=== PATIENT | male | born 1960 | race Caucasian/White ===

== ENCOUNTER 2020-08-04 08:24 | Observation (INO) | payer OTHER, SELFPAY ==
[2020-08-04] MEDS ORDERED: NA CHLORIDE 0.9% 1,000 ML ONE (08:50)
[2020-08-04 09:09] LABS: Absolute Lymphocytes (CBC) 0.8 K/uL (0.7-4.9); Basophils % 0.7 % (0-1.3); Hematocrit 38.7 % (39.6-49.0); MPV 8.7 fL (7.6-11.3)
[2020-08-04 09:13] LABS: Protime INR 0.97
[2020-08-04 09:23] LABS: ALT/SGPT 20 U/L (12-78); AST/SGOT 18 U/L (15-37); Albumin 3.3 g/dL (3.4-5.0); Alkaline Phosphatase 60 U/L (45-117); BUN Blood Urea Nitrogen 16 mg/dL (7-18); Bicarbonate 25 mmol/L (21-32); Bilirubin Direct 0.1 mg/dL (0-0.2); Bilirubin Total 0.4 mg/dL (0.2-1.0); Creatine Phosphokinase 187 U/L (39-308); Glucose Level 163 mg/dL (74-106); Lipase 95 U/L (73-393); Protein, Total 6.4 g/dL (6.4-8.2); Sodium Level 141 mmol/L (136-145); Troponin (Emerg Dept Use Only) < 0.02 ng/mL (0.0-0.045)
[2020-08-04 10:19] LABS: Urine Blood NEGATIVE (NEG); Urine Glucose NEGATIVE (NEG); Urine Protein NEGATIVE (NEG); Urine Specific Gravity 1.025 (1.005-1.030); Urine pH 8.5 (5.0-7.0)
--- NOTE | 2020-08-04 10:26 | RAD REPORT ---
EXAM DESCRIPTION: CT - Head Brain Wo Cont - 08/04/2020 9:47 am CLINICAL HISTORY: Generalized weakness Headache, drowsiness, vertigo COMPARISON: No comparisons TECHNIQUE: All CT scans are performed using dose optimization technique as appropriate and may inclu de automated exposure control or mA/KV adjustment according to patient size. FINDINGS: No intracranial hemorrhage, hydrocephalus or extra-axial fluid collection.No areas of brai n edema or evidence of midline shift. The paranasal sinuses and mastoids are clear. The calvarium is intact. IMPRESSION: No acute intracranial abnormality.
--- NOTE | 2020-08-04 10:26 | RAD REPORT ---
EXAM DESCRIPTION: CT - Head angio - 08/04/2020 9:47 am CLINICAL HISTORY: WEAKNESS Headache, drowsiness, weakness COMPARISON: Head Brain Wo Cont dated 08/04/2020 TECHNIQUE: CT angiography of the head was performed with MIPs. All CT scans are performed using dose optimization technique as appropriate and may include automated exposure control or mA/KV adjustment according to patient size. FINDINGS: No evidence of aneurysm is detected. No flow-limiting stenosis or vascular malformation id entified. Antegrade flow is seen in the vertebral arteries. The vertebral arteries are codominant. The visualized dural venous sinuses are patent. IMPRESSION: No significant flow abnormality is detected.
--- NOTE | 2020-08-04 10:28 | RAD REPORT ---
EXAM DESCRIPTION: CT - Neck Angio - 08/04/2020 9:47 am CLINICAL HISTORY: general weakness Headache, drowsiness, weakness COMPARISON: No comparisons TECHNIQUE: CT angiography of the neck vessels was performed with MIPs. All CT scans are performed using dose optimization technique as appropriate and may include automated exposure control or mA/KV adjustment according to patient size. FINDINGS: A left aortic arch is identified with normal three vessel configuration of the great vesse ls. No significant flow abnormality is seen of the common carotid bilaterally. No significant stenosis is identified involving the cervical segments of both internal carotid arteri es. Mild hard plaquing is seen in both carotid bulbs. Right-sided dominant vertebral artery. IMPRESSION: No significant flow abnormality of the neck vessels is identified.
--- NOTE | 2020-08-04 10:42 | ER ---
Nurse's Notes [facility] Name: Daniel Dubon III Age: 60 yrs Sex: Male : 1960 Arrival Date: 08/04/2020 Time: 08:27 Bed 6 Private MD: Diagnosis: Weakness;Possible seizure;Dehydration Presentation: 08/04 08:36 Chief complaint: Patient states: Woke up from a night terror last night and since then ss has felt generally weak, sweaty and anxious. Coronavirus screen: Client denies travel out of the [place] in the last 14 days. Ebola Screen: Patient denies exposure to infectious person. Patient denies travel to an Ebola-affected area in the 21 days before illness onset. Initial Sepsis Screen: Does the patient meet any 2 criteria? No. Patient's initial sepsis screen is negative. Does the patient have a suspected source of infection? No. Patient's initial sepsis screen is negative. Risk Assessment: Do you want to hurt yourself or someone else? Patient reports no desire to harm self or others. Onset of symptoms was August 04, 2020 at 03:00. Care prior to arrival: Medication(s) given: Normal saline infusion, 1000 mL, zofran 4 mg, IV initiated. 20 GA, in the left antecubital area, Glucose check: 140. 08:36 Method Of Arrival: EMS: [facility] 08:36 Acuity: EMILY 3 ss Historical: - Allergies: 08:41 No Known Allergies; ss - Home Meds: 08:41 amlodipine 5 mg tab 1 tab once daily [Active]; ss - PMHx: 08:41 GERD; High Cholesterol; Hypertension; ss - PSHx: 08:41 achilles repair; ss - Immunization history:: Adult Immunizations up to date. - Social history:: Smoking status: Patient denies any tobacco usage or history of. - Family history:: not pertinent. - Hospitalizations: : No recent hospitalization is reported. Screenin:36 Abuse screen: Denies threats or abuse. Denies injuries from another. Nutritional ph screening: No deficits noted. Tuberculosis screening: No symptoms or risk factors identified. Fall Risk None identified. Assessment: 08:42 General: Appears in no apparent distress. comfortable, Behavior is calm, cooperative. rb1 Pain: Complains of pain in head and neck Pain currently is 3 out of 10 on a pain scale. Neuro: Level of Consciousness is awake, alert, obeys commands, Oriented to person, place, time, situation. Neuro: Reports headache. Cardiovascular: Capillary refill < 3 seconds. Respiratory: Airway is patent Respiratory effort is even, unlabored, Respiratory pattern is regular, symmetrical. 10:00 Reassessment: Patient appears in no apparent distress at this time. Patient and/or ph family updated on plan of care and expected duration. Pain level reassessed. Patient is alert, oriented x 3, equal unlabored respirations, skin warm/dry/pink. 11:02 Reassessment: Patient appears in no apparent distress at this time. Patient and/or ph family updated on plan of care and expected duration. Pain level reassessed. Patient is alert, oriented x 3, equal unlabored respirations, skin warm/dry/pink. 12:01 Reassessment: Patient appears in no apparent distress at this time. Patient and/or ph family updated on plan of care and expected duration. Pain level reassessed. Patient is alert, oriented x 3, equal unlabored respirations, skin warm/dry/pink. Vital Signs: 08:36 BP 114 / 78; Pulse 69; Resp 16; Pulse Ox 100% on R/A; Weight 83.91 kg; Height 5 ft. 11 ss in. (180.34 cm); Pain 0/10; 08:41 Temp 96.2(TE); ss 10:00 BP 120 / 85; Pulse 75; Resp 18; Pulse Ox 100% on R/A; ph 11:00 BP 124 / 81; Pulse 78; Resp 18; Pulse Ox 99% on R/A; ph 12:00 BP 138 / 90; Pulse 92; Resp 18; Temp 97.2; Pulse Ox 100% on R/A; ph 13:00 BP 127 / 83; Pulse 87; Resp 18; Temp 97.6; Pulse Ox 99% on R/A; ph 08:36 Body Mass Index 25.80 (83.91 kg, 180.34 cm) ED Course: 08:27 Patient arrived in ED. ss 08:31 Juan Fox MD is Attending Physician. rn 08:34 Sierra Samaniego RN is Primary Nurse. ph 08:39 Triage completed. ss 08:41 Arm band placed on right wrist. ss 08:41 Patient maintains SpO2 saturation greater than 95% on room air. 08:52 XRAY Chest (1 view) In Process Unspecified. EDMS 09:35 Patient has correct armband on for positive identification. Bed in low position. Call ph light in reach. Side rails up X 1. classroom monitor on. Pulse ox on. NIBP on. 09:52 CT Head Brain wo Cont In Process Unspecified. EDMS 09:52 CT Neck Angio In Process Unspecified. EDMS 09:52 CT Head Angio In Process Unspecified. EDMS 10:40 Ne Rose MD is Hospitalizing Provider. rn 12:03 No provider procedures requiring assistance completed. ph 12:04 Maintain EMS IV. Dressing intact. Good blood return noted. Site clean \T\ dry. Gauge \T\ ph site: 20 LAC. Patient admitted, IV remains in place. Administered Medications: 08:41 Drug: NS 0.9% 1000 ml Route: IV; Rate: 1000 ml; Site: left antecubital; rb1 10:53 Follow up: Response: No adverse reaction; IV Status: Completed infusion; IV Intake: ph 1000ml 10:52 Drug: Aspirin Chewable Tablet 324 mg Route: PO; ph 12:04 Follow up: Response: No adverse reaction ph Intake: 10:53 IV: 1000ml; Total: 1000ml. ph Outcome: 10:42 Decision to Hospitalize by Provider. rn 13:26 Patient left the ED. ph 13:26 Admitted to Tele accompanied by tech, family with patient, via wheelchair, with chart. ph 13:26 Condition: stable 13:26 Instructed on the need for admit. Signatures: Dispatcher [employer] EDIA Juan Fox MD MD rn Smirch, Shelby, RN RN Sierra Samaniego RN RN ph Yneni Jordan, CARLOS RN rb1 Corrections: (The following items were deleted from the chart) 10:53 10:53 Response: No adverse reaction; IV Status: Completed infusion ph ph
--- NOTE | 2020-08-04 10:42 | EDPHYS ---
Physician Documentation [facility] Name: Daniel Dubon III Age: 60 yrs Sex: Male : 1960 Arrival Date: 08/04/2020 Time: 08:27 Bed 6 Private MD: ED Physician Juan Fox HPI: 08/04 08:36 This 60 yrs old Male presents to ER via Unassigned with complaints of rn generalized weakness, doesn't feel well. 08:36 Reports woke up around 0300, felt like "was dreaming", didn't feel well, reports as rn vertigo but denies dizziness. Reports generalized weakness and vivid dream. Has been having vivid dreams lately, attributes it to CBD oil. Denies focal neurological complaint, + mild headache, no chest pain, no fever, does not feel ill. Has been having leg cramps for weeks. Currently feels better, but reports feels anxious. . Onset: The symptoms/episode began/occurred this morning. Severity of symptoms: At their worst the symptoms were moderate in the emergency department the symptoms have improved. It is unknown whether or not the patient has had similar symptoms in the past. The patient has not recently seen a physician. Historical: - Allergies: 08:41 No Known Allergies; ss - Home Meds: 08:41 amlodipine 5 mg tab 1 tab once daily [Active]; ss - PMHx: 08:41 GERD; High Cholesterol; Hypertension; ss - PSHx: 08:41 achilles repair; ss - Immunization history:: Adult Immunizations up to date. - Social history:: Smoking status: Patient denies any tobacco usage or history of. - Family history:: not pertinent. - Hospitalizations: : No recent hospitalization is reported. ROS: 08:36 Constitutional: Negative for fever, chills, and weight loss, Eyes: Negative for injury, rn pain, redness, and discharge, Neck: Negative for injury, pain, and swelling, Cardiovascular: Negative for chest pain, palpitations, and edema, Respiratory: Negative for shortness of breath, cough, wheezing, and pleuritic chest pain, Abdomen/GI: Negative for abdominal pain, diarrhea, and constipation, MS/Extremity: Negative for injury and deformity, Skin: Negative for injury, rash, and discoloration, Neuro: Negative for numbness, tingling, and seizure. Exam: 08:36 Constitutional: This is a well developed, well nourished patient who is awake, alert, rn and in no acute distress, appears anxious. Head/Face: Normocephalic, atraumatic. Eyes: Pupils equal round and reactive to light, extra-ocular motions intact. Lids and lashes normal. Cornea within normal limits. Periorbital areas with no swelling, redness, or edema. No nystagmus. Cardiovascular: Regular rate and rhythm. No pulse deficits. Respiratory: No increased work of breathing, no retractions or nasal flaring. Abdomen/GI: soft, non-tender Skin: Warm, dry, no cyanosis MS/ Extremity: Pulses equal, no cyanosis. Neurovascular intact. Full, normal range of motion. Equal circumference. Neuro: Awake and alert, GCS 15, oriented to person, place, time, and situation. Cranial nerves II-XII grossly intact. Motor strength 5/5 in all extremities. Sensory grossly intact. 09:20 ECG was reviewed by the Attending Physician. rn Vital Signs: 08:36 BP 114 / 78; Pulse 69; Resp 16; Pulse Ox 100% on R/A; Weight 83.91 kg; Height 5 ft. 11 ss in. (180.34 cm); Pain 0/10; 08:41 Temp 96.2(TE); ss 10:00 BP 120 / 85; Pulse 75; Resp 18; Pulse Ox 100% on R/A; ph 11:00 BP 124 / 81; Pulse 78; Resp 18; Pulse Ox 99% on R/A; ph 12:00 BP 138 / 90; Pulse 92; Resp 18; Temp 97.2; Pulse Ox 100% on R/A; ph 13:00 BP 127 / 83; Pulse 87; Resp 18; Temp 97.6; Pulse Ox 99% on R/A; ph 08:36 Body Mass Index 25.80 (83.91 kg, 180.34 cm) ss MDM: 08:31 Patient medically screened. rn 09:20 ED course: Pt with ECg showing NSR, < 1mm ST elevation V4-V6, no reciprocal changes, rn appears to be J point elevation. Pt without chest pain or equivalent. Will continue to monitor. . 10:05 ED course: here, gave better account as to events, reports 2 separate episodes rn today, one around 0300 and one later, where he tensed up and made "gurgling sound", less than 30 sec, and followed by "thrashing and confusion" around 0300, and confusion later in day. Possible that he had seizure or seizure-like activity, is pending ct head and angios, if nothing found, discussed with patient need for admission to rule out cardiac causes and seizure-mimics given he is 60 years old and no hx of seizures in him or his family. . 10:38 Data reviewed: vital signs, nurses notes, lab test result(s), EKG, radiologic studies, rn CT scan, plain films, and as a result, I will admit patient. Counseling: I had a detailed discussion with the patient and/or guardian regarding: the historical points, exam findings, and any diagnostic results supporting the discharge/admit diagnosis, lab results, radiology results, the need for further work-up and treatment in the hospital. Response to treatment: There is no appreciated change of the patient's symptoms at this time, and as a result, I will admit patient. Admission orders: after a detailed discussion of the patient's condition and case, the admit orders are written by me. 08/04 08:34 Order name: Basic Metabolic Panel; Complete Time: :39 rn 08/04 08:34 Order name: CBC with Diff; Complete Time: 09:14 rn 08/04 08:34 Order name: CPK; Complete Time: :39 rn 08/04 08:34 Order name: Hepatic Function; Complete Time: :39 08/04 08:34 Order name: Lipase; Complete Time: :39 08/04 08:34 Order name: Magnesium; Complete Time: :39 08/04 08:34 Order name: CT Head Brain wo Cont; Complete Time: 10: rn 08/04 08:34 Order name: Protime (+inr); Complete Time: :39 rn 08/04 08:34 Order name: Ptt, Activated; Complete Time: :39 rn 08/04 08:34 Order name: Troponin (emerg Dept Use Only); Complete Time: 09:39 rn 08/04 08:34 Order name: CT Neck Angio; Complete Time: 10:08/04 08:35 Order name: COVID-19 rn 08/04 09:48 Order name: Urine Dipstick--Ancillary (enter results); Complete Time: 10:20 eb 08/04 10:34 Order name: Urine Drug Screen; Complete Time: 11:25 rn 08/04 08:34 Order name: EKG; Complete Time: 08:34 rn 08/04 08:34 Order name: Cardiac monitoring; Complete Time: 08:35 rn 08/04 08:34 Order name: EKG - Nurse/Tech; Complete Time: 08:49 rn 08/04 08:34 Order name: IV Saline Lock; Complete Time: 08:35 rn 08/04 08:34 Order name: Labs collected and sent; Complete Time: 09:36 rn 08/04 08:34 Order name: NPO; Complete Time: 08:49 rn 08/04 08:34 Order name: O2 Per Protocol; Complete Time: 08:49 rn 08/04 08:34 Order name: O2 Sat Monitoring; Complete Time: 08:50 rn 08/04 08:34 Order name: Urine Dipstick-Ancillary (obtain specimen); Complete Time: 09:36 rn 08/04 08:34 Order name: CT Head Angio; Complete Time: 10:29 rn 08/04 08:34 Order name: XRAY Chest (1 view) rn EC:20 Rate is 71 beats/min. Rhythm is regular. QRS [place] is Normal. [place] interval is normal. QRS rn interval is normal. QT interval is normal. No Q waves. T waves are Normal. ST Segment is elevated in leads V4, V5, V6. Clinical impression: NSR w/ Non-specific ST/T Changes. Interpreted by me. Reviewed by me. Administered Medications: 08:41 Drug: NS 0.9% 1000 ml Route: IV; Rate: 1000 ml; Site: left antecubital; rb1 10:53 Follow up: Response: No adverse reaction; IV Status: Completed infusion; IV Intake: ph 1000ml 10:52 Drug: Aspirin Chewable Tablet 324 mg Route: PO; ph 12:04 Follow up: Response: No adverse reaction ph Disposition: 08/04/20 10:42 Hospitalization ordered by Ne Rose for Observation. Preliminary diagnosis are Weakness, Possible seizure, Dehydration. - Bed requested for Telemetry/MedSurg (observation). - Status is Observation. ph - Condition is Stable. - Problem is new. - Symptoms have improved. Signatures: Dispatcher [employer] EDTalia Heredia RN RN Juan Alvarado MD MD rn Smirch, Shelby, RN RN ss Sierra Samaniego RN RN ph Yenni Jordan, RN RN rb1 Corrections: (The following items were deleted from the chart) 11:23 10:42 Hospitalization Ordered by A Rose MARTINEZ for Observation. Preliminary diagnosis is dw Weakness; Possible seizure; Dehydration. Bed requested for Telemetry/MedSurg (observation). Status is Observation. Condition is Stable. Problem is new. Symptoms have improved. rn 13:26 11:23 08/04/2020 10:42 Hospitalization Ordered by A Rose MARTINEZ for Observation. ph Preliminary diagnosis is Weakness; Possible seizure; Dehydration. Bed requested for Telemetry/MedSurg (observation). Status is Observation. Condition is Stable. Problem is new. Symptoms have improved. dw
[2020-08-04] MEDS ORDERED: ASPIRIN 81 MG CHEWABLE TABLET ONE (11:03)
[2020-08-04 11:11] LABS: Barbiturates NEGATIVE (NEGATIVE); Benzodiazepines NEGATIVE (NEGATIVE); Cocaine NEGATIVE (NEGATIVE); METHAMPHETAM NEGATIVE (NEGATIVE); Methadone NEGATIVE (NEGATIVE); Opiates NEGATIVE (NEGATIVE); Phencyclidine NEGATIVE (NEGATIVE); THC Cannibis NEGATIVE (NEGATIVE)
--- NOTE | 2020-08-04 11:49 | RAD REPORT ---
EXAM DESCRIPTION: RAD - Chest Single View - 08/04/2020 8:52 am CLINICAL HISTORY: generalized weakness Chest pain. COMPARISON: CHEST PA AND LAT 2 VIEW dated 01/18/2014 FINDINGS: Portable technique limits examination quality. The lungs are grossly clear. The heart is normal in size. No displaced fractures. IMPRESSION: No acute intrathoracic process suspected.
[2020-08-04] MEDS ORDERED: ONDANSETRON 4 MG/2 ML VIAL IV PRN (13:33)
[2020-08-04 13:40] VITALS: BMI 25.7
[2020-08-05 06:11] LABS: Absolute Lymphocytes (CBC) 1.3 K/uL (0.7-4.9); Basophils % 0.7 % (0-1.3); Hematocrit 41.6 % (39.6-49.0); MPV 8.7 fL (7.6-11.3); RBC Red Blood Cell Count 4.89 M/uL (4.33-5.43)
[2020-08-05 06:30] LABS: Potassium 3.9 mmol/L (3.5-5.1); Thyroid Stimulating Hormone 0.752 uIU/mL (0.360-3.740)
[2020-08-05 08:27] VITALS: TEMP 97.8
[2020-08-05] MEDS ORDERED: ASPIRIN EC 81 MG TAB PO SCH (09:00)
[2020-08-05 09:11] VITALS: O2SAT 94
--- NOTE | 2020-08-05 10:40 | DS ---
Date of Discharge: 08/05/2020 Chief Complaint: Possible seizure. History Of Present Illness: A 60-year-old male patient who was in his normal usual state of health o n Thursday, had his normal usual uneventful day and went to bed on Thursday night feeling fine without an y complaints. On Thursday consulting utility forester around 3 a.m. while he was in the bed, his woke up and noted that the patient was having gurgling type of sound and he was thrashing around in the bed and s aying, "I am dying." She tried to calm him down and noted that he was sweating a lot and then subseq uently after a while he went back to sleep. Around 7 o'clock in the morning time, he woke up and ask ed his to get the glass of orange juice, and when came back noted that the patient was havi ng gurgling sound, again was unresponsive and describes as if he was stiff as a board and sweating a lot and appeared very pale. She tried to wake him up, but he did not respond. After a while this ep isode was over and he appeared confused to start with. During this episode, his eyes were rolled up. EMS was called and he was brought into emergency room. After his evaluation in the ER, he was admi tted to the hospital. He has not had any such episode after his admission to the hospital. Denies a ny head injury. No incontinence problem during this episode. Allergies: THE PATIENT'S ALLERGY TO ASPIRIN CAUSING THROAT CLOSING TYPE OF SIDE EFFECT. Medications: Takes amlodipine 5 mg daily, omeprazole 40 mg daily, Cialis as needed, and the patient reports that in last 2 weeks he has started to use CBD oil and I have advised him to stop using it to day. Past Medical History: Hypertension, hyperlipidemia, gastroesophageal reflux disease. Past Surgical History: Tendon repair. Social History: Negative for smoking. Use of alcohol about 2 beers a day, and I have also advised h im today to completely quit using alcohol. Family History: Not pertinent. Review of Systems: SELECT BANKER: As mentioned above. All other systems reviewed and negative. Physical Examination: Vital Signs: This morning temperature 97.7, pulse 82, respiratory rate 18, blood pressure 142/88, ox ygen saturation 98%. Height 5 feet 11 inches, weight 185 pounds. General: Awake, alert, oriented, not in distress. HEENT: Head atraumatic, normocephalic. Conjunctivae nonerythematous. Sclerae white. Mouth, no thr ush or edema noted. Ears/Nose, no mass, lesion, discharge noted. Neck: Supple. No JVD, lymph nodes, bruit, thyromegaly noted. Lungs: Bilateral good equal air entry. Clear to auscultation. No rhonchi. No rales. Heart: Normal heart sounds, no murmur or gallop. Abdomen: Soft, bowel sounds normal. No guarding, rigidity, tenderness, mass, hepatosplenomegaly, dis tention, or bruit noted. Extremities: No leg edema. No calf tenderness. Skin: No rash, ulcer, cellulitis. Lymphatics: No lymph node enlargement in neck, supraclavicular, infraclavicular region. Neuro: No focal neurological deficit. Chest: Unremarkable. External Genitalia: Deferred. Rectal: Deferred. Laboratory Data: Yesterday white count 5.3, hemoglobin 13.5, platelets 200. Today, white count 7.9, hemoglobin 14.4, platelets 221. INR 0.97. Yesterday, sodium 141, potassium 4, chloride 110, bicarb 25, BUN 16, creatinine 0.96, glucose 163. Liver function tests unremarkable. Troponin less than 0. 02. This morning, sodium 141, potassium 3.9, chloride 111, bicarb 26, BUN 18, creatinine 1.01, gluco se 101, hemoglobin A1c 5.5, TSH 0.752. Urinalysis; 1+ ketones, otherwise negative. Urine toxicology screen negative. Chest x-ray; no acute cardiopulmonary changes. CT scan of the head; no acute intr acranial changes. CT angiogram of head and neck was negative for any acute findings. No evidence of aneurysm or any flow-limiting stenosis. Hospital Course: After the patient was evaluated in the emergency room, he was admitted to the [facility]. His condition overnight has remained stable. Cardiology and neurology consultation were reques argelia. I did talk to neurologist Dr. Mcneill and he has given me his okay for patient to go home and he will pursue further outpatient on outpatient basis that will include EEG and MRI. We also talked about starting medication like Keppra and we will start Keppra as per recommendation from Dr. Janet steele which will be 250 mg p.o. daily for 3 days, every 3 days we will add 250 mg dose until we reach trent ntenance dose of 500 mg twice a day. I will see patient for followup on of this week at my office. The patient was given instructions about not to drink any alcohol, not to take CBD oil anymo re, and he was also advised about the state law which is not to drive any motor vehicle for 6 months that includes his car and his motorcycle. He was also advised not to be around any hazardous machine ry use, which may increase risk of injury, and he does lot of water sports and water activities, and I have given him appropriate instructions to avoid any such activities because of risk of life-threat ening complications. I have advised him to avoid getting into any open body of water. No swimming e tc. All details were discussed with the patient and his both, and we will discharge him with ab ove-mentioned medication instruction and he will follow up with Dr. Mcneill and he will call his off ice tomorrow. CHAD/MODL Voice ID: [id number] Report ID: [id number]
--- NOTE | 2020-08-05 11:16 | CON ---
Date of Consultation: 08/05/2020 Reason For Consultation: Weakness and dizziness. History Of Present Illness: The patient is a 60-year-old white male. He has a history of hypertensi on, dyslipidemia, gastroesophageal reflux disease. Came in with weakness and nightmares and he felt like he was dying, cold sweat, nausea, thrashing in bed, slightly postictal, no tongue biting. No lo ss of bladder or bowel control. The patient was stiff according to the . The working diagnosis is a grand mal seizure disorder. Neurological consultation is pending. There is no history reported of chest pain or syncope or palpitations. He has already ruled out for an NC. He had a CT angiogra m of the head and neck that was negative. CT of his head was negative. Chest x-ray was negative. E KG was negative. Laboratory evaluation was negative. The only new medication that Mr. Dubon is on is CBD oil that he has been taking for couple weeks, and we will ask him to stop that. Past Medical History: As stated above. Allergies: NONE. Review of Systems: Negative. Social History: Negative. Family History: Negative. Physical Examination: Vital Signs: Stable. He is afebrile. HEENT: Negative. Neck: Supple with no bruit. Chest: Clear. Cardiac: Exam revealed a regular rhythm and rate. No murmurs, gallops, or rubs. Abdomen: Benign. Extremities: Reveal no clubbing, cyanosis, or edema. Diagnostic Data: As stated earlier. Impression And Plan: 1.Grand mal seizure disorder. I doubt that he has any cardiac issues here. However, the case was d iscussed with Dr. Rose. I will be happy to have him do an event monitor and an echocardiogram is an outpatient just in case this was rhythm related seizure. 2.Hypertension, well controlled on Norvasc. 3.Dyslipidemia, on diet. 4.Gastroesophageal reflux disease. Neurological consultation is pending, but as far as I am concerned, the patient can go home whenever it is okay with Dr. Rose. Dr. Rose has decided to put him on Keppra. NB/MODL Voice ID: [id number] Report ID: [id number]
[2020-08-05 11:43] VITALS: BP 135/85
--- NOTE | 2020-08-07 10:12 | EKG ---
Test Date: 2020-08-04 Test Time: 08:42:53 Binding Folder Machine: BAKARI MEASUREMENT RESULTS: Intervals: Rate: 71 IN: 176 QRSD: 92 QT: 418 QTc: 454 [place]: P: 72 IN: 176 QRS: 60 T: 33 INTERPRETIVE STATEMENTS: Normal sinus rhythm ST elevation, probably due to early repolarization Borderline ECG No previous ECG available for comparison Electronically Signed On 08-07-20 10:07:07 CDT by Gee Chavez
== END 2020-08-05 11:36 | disposition home or self-care (01) ==
LOC: ER 08:24 → ERHOLD 10:50 → 2ND 12:51
PROVIDERS: ADMIT Internal Medicine; ATTEND Internal Medicine
DX: G40.409 Other generalized epilepsy and epileptic syndromes, not intractable, without status epilepticus (principal); I10 Essential (primary) hypertension; K21.9 Gastro-esophageal reflux disease without esophagitis; E78.5 Hyperlipidemia, unspecified; F10.10 Alcohol abuse, uncomplicated; F12.90 Cannabis use, unspecified, uncomplicated
CPT/HCPCS: 96361; 93005 ×2; 85025 ×2; 80048 ×2; 36415; 83735; 82550; 85610; 82565; 80076; 80307 ×8; 85730; 84443; 81003; 83036; 84484 ×3; 83690; 70450; 70496; 70498; 71045; 96360; 99285; U0002; Q9967; J7030; G0378 ×3

== ENCOUNTER 2021-02-04 19:31 | Emergency (ER) | payer BC, OTHER ==
[2021-02-04 23:08] LABS: Protime INR 0.95
[2021-02-04 23:10] LABS: Basophils % 0.8 % (0-1.3); Lymphocytes % 17.9 % (15.3-44.8); MPV 8.8 fL (7.6-11.3); RBC Red Blood Cell Count 5.17 M/uL (4.33-5.43)
[2021-02-04 23:15] LABS: BUN Blood Urea Nitrogen 19 mg/dL (7-18); Bicarbonate 28 mmol/L (21-32); Glucose Level 96 mg/dL (74-106); Potassium 3.8 mmol/L (3.5-5.1); Sodium Level 140 mmol/L (136-145); Troponin (Emerg Dept Use Only) < 0.02 ng/mL (0.0-0.045)
--- NOTE | 2021-02-05 00:44 | EDPHYS ---
Physician Documentation [facility] Name: Daniel Dubon III Age: 60 yrs Sex: Male : 1960 Arrival Date: 02/04/2021 Time: 19:37 Bed 23 Private MD: ED Physician Juan Fox HPI: 02/04 22:49 This 60 yrs old Male presents to ER via Ambulatory with complaints of High rn Blood Pressure. 22:49 The patient has elevated blood pressure and discovered this at home. Onset: The rn symptoms/episode began/occurred this morning. Modifying factors:. Associated signs and symptoms: Pertinent positives: headache, Pertinent negatives: dyspnea, visual changes, weakness. Severity of symptoms: At its worst the blood pressure was moderate, in the emergency department the blood pressure is improved. The patient has not experienced similar symptoms in the past. The patient has been recently seen by a physician:. Reports having neck problems with pain and radiation to left arm for about 1-2 weeks, seen by PCP, put on steroids and muscle relaxer for possible pinched nerve. Denies chest pain/sob/abd pain. No focal weakness. Reports has had nerve problems in neck and back before, and is getting slightly better. No new trauma. Pt reports high blood pressure at home when got home from work, checked BP because "didn't feel right", tired, slight headache, and still had neck pain, was 200/100, took an extra amlodipine, and came here. BP and symptoms have improved. . Historical: - Allergies: 20:25 No Known Allergies; ca1 - Home Meds: 20:25 amlodipine 5 mg tab 1 tab once daily [Active]; aspirin 81 mg Oral TbEC 1 tab once daily ca1 [Active]; omeprazole 40 mg Oral cpDR 1 cap once daily [Active]; - PMHx: 20:25 GERD; High Cholesterol; Hypertension; Seizures; ca1 - PSHx: 20:25 achilles repair; ca1 - Immunization history:: Client reports receiving the 2nd dose of the Covid vaccine, Client reports receiving the 1st dose of the Covid vaccine, Flu vaccine is up to date. - Social history:: Smoking status: Patient denies any tobacco usage or history of. - Family history:: not pertinent. - Hospitalizations: : No recent hospitalization is reported. ROS: 22:49 Constitutional: Negative for fever, chills, and weight loss, Eyes: Negative for injury, rn pain, redness, and discharge, ENT: Negative for injury, pain, and discharge, Neck: Negative for injury, and swelling, Cardiovascular: Negative for chest pain, palpitations, and edema, Respiratory: Negative for shortness of breath, cough, wheezing, and pleuritic chest pain, Abdomen/GI: Negative for abdominal pain, vomiting, diarrhea, and constipation, Back: Negative for injury and pain, MS/Extremity: Negative for injury and deformity, Skin: Negative for injury, rash, and discoloration, Neuro: Negative for weakness, and seizure. Exam: 22:49 Constitutional: This is a well developed, well nourished patient who is awake, alert, rn and in no acute distress. Head/Face: Normocephalic, atraumatic. Eyes: Pupils equal round and reactive to light, extra-ocular motions intact. Lids and lashes normal. Conjunctiva and sclera are non-icteric and not injected. Cornea within normal limits. Periorbital areas with no swelling, redness, or edema. Neck: Trachea midline, no masses palpated, and no cervical lymphadenopathy. Supple, full range of motion without nuchal rigidity, or vertebral point tenderness. No Meningismus. Cardiovascular: Regular rate and rhythm. No pulse deficits. Respiratory: No increased work of breathing, no retractions or nasal flaring. Abdomen/GI: soft, non-tender Skin: Warm, dry with normal turgor. Normal color with no rashes, no lesions, and no evidence of cellulitis. MS/ Extremity: Pulses equal, no cyanosis. Neurovascular intact. Full, normal range of motion. Equal circumference. Neuro: Awake and alert, GCS 15, oriented to person, place, time, and situation. Cranial nerves II-XII grossly intact. Motor strength 5/5 in all extremities. Sensory grossly intact. Cerebellar exam normal. 22:58 ECG was reviewed by the Attending Physician. rn Vital Signs: 20:18 BP 159 / 89; Pulse 78; Resp 17 S; Temp 96.9(TE); Pulse Ox 99% on R/A; Weight 87.09 kg ca1 (R); Height 5 ft. 10 in. (177.80 cm) (R); Pain 4/10; 22:40 BP 142 / 98; Pulse 65; Resp 16; Temp 97.2; Pulse Ox 94% on R/A; Pain 0/10; fu 20:18 Body Mass Index 27.55 (87.09 kg, 177.80 cm) ca1 MDM: 22:09 Patient medically screened. rn 23:32 ED course: BP improved without intervention, feeling better, normal ecg, neg trop. rn Awaiting ct results. . 23:33 Differential diagnosis: hypertensive crisis, Malignant HTN, hypertension 2/2 rn pain/steroids. Data reviewed: vital signs, nurses notes, lab test result(s), EKG. Counseling: I had a detailed discussion with the patient and/or guardian regarding: the historical points, exam findings, and any diagnostic results supporting the discharge/admit diagnosis, the presence of at least one elevated blood pressure reading (>120/80) during this emergency department visit, lab results. Response to treatment: the patient's symptoms have mildly improved after treatment. 02/05 00:43 ED course: NO acute findings CT head/CTA head and neck. No acute findings in blood/ecg. rn Will dc home as BP has improved, recommend outpt MRI, and pcp f/u for BP management. Might improve when finishes steroids.. 02/04 22:35 Order name: CBC with Diff; Complete Time: 23:16 rn 02/04 22:35 Order name: Basic Metabolic Panel; Complete Time: 23:16 rn 02/04 22:35 Order name: Protime (+inr); Complete Time: 23:16 rn 02/04 22:35 Order name: Ptt, Activated; Complete Time: 23:16 rn 02/04 22:35 Order name: Troponin (emerg Dept Use Only); Complete Time: 23:16 rn 02/04 22:35 Order name: CT Head Brain wo Cont rn 02/04 22:35 Order name: IV Start; Complete Time: 22:45 rn 02/04 22:35 Order name: EKG; Complete Time: 22:36 rn 02/04 22:35 Order name: EKG - Nurse/Tech; Complete Time: 23:11 rn 02/04 22:35 Order name: CT Head Angio rn 02/04 22:35 Order name: Neck Angio CT rn EC/26 22:58 Rate is 63 beats/min. Rhythm is regular. QRS [place] is Normal. OK interval is normal. QRS rn interval is normal. QT interval is normal. No Q waves. T waves are Normal. No ST changes noted. Clinical impression: Normal ECG. Interpreted by me. Reviewed by me. Administered Medications: No medications were administered Disposition: 02/05/21 00:43 Discharged to Home. Impression: Hypertension, Radiculopathy, cervical region. - Condition is Stable. - Discharge Instructions: Cervical Radiculopathy, Hypertension. - Medication Reconciliation Form, Thank You Letter, Antibiotic Education, Prescription Opioid Use form. - Follow up: Private Physician; When: As needed; Reason: Recheck today's complaints, Re-evaluation by your physician. - Problem is an ongoing problem. - Symptoms have improved. Signatures: Dispatcher [employer] EDMS Herminia Barton RN RN iw Juan Fox MD MD rn Acob, MAINE Franks RN ca1 Corrections: (The following items were deleted from the chart) 02/05 00:58 00:43 02/05/2021 00:43 Discharged to Home. Impression: Hypertension; Radiculopathy, iw cervical region. Condition is Stable. Discharge Instructions: Cervical Radiculopathy, Hypertension. Forms are Medication Reconciliation Form, Thank You Letter, Antibiotic Education, Prescription Opioid Use. Follow up: Private Physician; When: As needed; Reason: Recheck today's complaints, Re-evaluation by your physician. Problem is an ongoing problem. Symptoms have improved. [place]
--- NOTE | 2021-02-05 00:44 | ER ---
Nurse's Notes [facility] Name: Daniel Dubon III Age: 60 yrs Sex: Male : 1960 Arrival Date: 02/04/2021 Time: 19:37 Bed 23 Private MD: Diagnosis: Hypertension;Radiculopathy, cervical region Presentation: 02/04 20:18 Chief complaint: Patient states: Been feeling weird all day today. Took BP around 1845, ca1 BP was 200/120. Takes BP meds, amlodipine 5mg every morning. Took 1 amlodipine tonight 1 hr FACULTY DEAN, still SBP was 220-225. Been feeling dizzy all day since 0900 today. Reports headache, tingling of L arm. Coronavirus screen: Client denies travel out of the [place] in the last 14 days. At this time, the client does not indicate any symptoms associated with coronavirus-19. Ebola Screen: Patient negative for fever greater than or equal to 101.5 degrees Fahrenheit, and additional compatible Ebola Virus Disease symptoms Patient denies exposure to infectious person. Patient denies travel to an Ebola-affected area in the 21 days before illness onset. No symptoms or risks identified at this time. Initial Sepsis Screen: Does the patient meet any 2 criteria? No. Patient's initial sepsis screen is negative. Does the patient have a suspected source of infection? No. Patient's initial sepsis screen is negative. Risk Assessment: Do you want to hurt yourself or someone else? Patient reports no desire to harm self or others. Onset of symptoms was February 04, 2021. 20:18 Method Of Arrival: Ambulatory ca1 20:18 Acuity: EMILY 3 ca1 Historical: - Allergies: 20:25 No Known Allergies; ca1 - Home Meds: 20:25 amlodipine 5 mg tab 1 tab once daily [Active]; aspirin 81 mg Oral TbEC 1 tab once daily ca1 [Active]; omeprazole 40 mg Oral cpDR 1 cap once daily [Active]; - PMHx: 20:25 GERD; High Cholesterol; Hypertension; Seizures; ca1 - PSHx: 20:25 achilles repair; ca1 - Immunization history:: Client reports receiving the 2nd dose of the Covid vaccine, Client reports receiving the 1st dose of the Covid vaccine, Flu vaccine is up to date. - Social history:: Smoking status: Patient denies any tobacco usage or history of. - Family history:: not pertinent. - Hospitalizations: : No recent hospitalization is reported. Screenin:09 Abuse screen: Denies threats or abuse. Nutritional screening: No deficits noted. fu Tuberculosis screening: No symptoms or risk factors identified. Fall Risk None identified. Assessment: 23:00 General: Appears in no apparent distress. Behavior is calm, cooperative, appropriate fu for age, Reports "not feeling well". Pain: Denies pain. Neuro: Level of Consciousness is awake, alert, obeys commands, Oriented to person, place, time, situation, Moves all extremities. Gait is steady, Speech is normal, Facial symmetry appears normal. Cardiovascular: Denies chest pain, nausea, vomiting. Respiratory: Respiratory effort is even, unlabored, Respiratory pattern is regular. GI: Patient currently denies abdominal pain, nausea, vomiting. Derm: Skin is intact, Skin is normal. Musculoskeletal: No signs and/or symptoms reported regarding the musculoskeletal system. Vital Signs: 20:18 BP 159 / 89; Pulse 78; Resp 17 S; Temp 96.9(TE); Pulse Ox 99% on R/A; Weight 87.09 kg ca1 (R); Height 5 ft. 10 in. (177.80 cm) (R); Pain 4/10; 22:40 BP 142 / 98; Pulse 65; Resp 16; Temp 97.2; Pulse Ox 94% on R/A; Pain 0/10; fu 20:18 Body Mass Index 27.55 (87.09 kg, 177.80 cm) ca1 ED Course: 19:37 Patient arrived in ED. ag3 20:23 Triage completed. ca1 20:25 Arm band placed on right wrist. ca1 22:09 Juan Fox MD is Attending Physician. rn 22:30 Inserted saline lock: 20 gauge in right antecubital area, using aseptic technique. fu Blood collected. 22:45 Protime (+inr) Sent. fu 22:45 Ptt, Activated Sent. fu 22:45 Basic Metabolic Panel Sent. fu 22:45 CBC with Diff Sent. fu 22:58 Rui Peña, CARLOS is Primary Nurse. fu 23:11 Bed in low position. Call light in reach. fu 02/05 00:00 Primary Nurse role handed off by Rui Peña RN iw 00:00 Mick, Herminia, RN is Primary Nurse. iw 00:13 CT Head Brain wo Cont In Process Unspecified. EDMS 00:13 CT Head Angio In Process Unspecified. EDMS 00:[address] In Process Unspecified. EDMS 00:57 No provider procedures requiring assistance completed. IV discontinued, intact, iw bleeding controlled, No redness/swelling at site. Pressure dressing applied. Administered Medications: No medications were administered Outcome: 00:43 Discharge ordered by . rn 00:57 Discharged to home ambulatory. iw 00:57 Condition: good 00:57 Discharge instructions given to patient, Instructed on discharge instructions, follow up and referral plans. Demonstrated understanding of instructions, follow-up care. 00:58 Patient left the ED. iw Signatures: Dispatcher [employer] Herminia Patel, RN RN Juan Fox MD MD rn Umadhay, Felix, RN Amy Man ag3 Tiny Richmond RN RN ca1
[2021-02-05 01:06] VITALS: BP 142/98; TEMP 97.2; O2SAT 94
--- NOTE | 2021-02-05 11:14 | EKG ---
Test Date: 2021-02-04 Test Time: 22:51:48 Percussion Instructor: VENU MEASUREMENT RESULTS: Intervals: Rate: 63 SD: 164 QRSD: 80 QT: 412 QTc: 421 [place]: P: 56 SD: 164 QRS: 31 T: 30 INTERPRETIVE STATEMENTS: Normal sinus rhythm Normal ECG Compared to ECG 08/04/2020 14:08:30 No significant changes Electronically Signed On 02-05-21 11:13:20 CDT by Gee Chavez
--- NOTE | 2021-02-05 13:13 | RAD REPORT ---
EXAM DESCRIPTION: CT - Head Brain Wo Cont - 02/05/2021 6:41 am CLINICAL HISTORY: HTN;Headache COMPARISON: 08/04/2020 TECHNIQUE: Axial CT of the head obtained from the skull apex to the skull base without contrast. Thi s exam was performed according to our departmental dose-optimization program, which includes automate d exposure control, adjustment of the mA and/or kV according to patient size and/or use of iterative reconstruction technique. FINDINGS: No acute intracranial hemorrhage identified. No mass, mass effect, shift of the midline, a bnormal extra-axial fluid collection or CT evidence of acute ischemic change identified. The ventricu lar system and sulcal spaces are not enlarged. Scattered areas of hypodensity throughout the suprat entorial white matter are nonspecific and may be related to chronic small vessel ischemic change. The visualized paranasal sinuses and mastoid air cells are well aerated. No skull fracture identifi ed. Visualized orbits and globes are unremarkable. Atherosclerotic calcification of the intracranial internal carotid arteries. IMPRESSION: 1. No acute intracranial abnormality by CT criteria. Electronically signed by: Rocco Bennett 02/05/2021 12:14 AM CDT Due to temporary technical issues with the PACS/Fluency reporting system, reports are being signed by the in house radiologists without review as a courtesy to insure prompt reporting. The interpreting radiologist is fully responsible for the content of the report.
--- NOTE | 2021-02-05 13:18 | RAD REPORT ---
EXAM DESCRIPTION: CT - Head angio - 02/05/2021 6:39 am CLINICAL HISTORY: 60 years, Male, HEADACHE COMPARISON: 08/04/2000 TECHNIQUE: Axial CTA images of the head and neck obtained following the uncomplicated intravenous ad ministration of iodinated contrast. 3-D/MIP reformatted images available. This exam was performed acc ording to our departmental dose-optimization program, which includes automated exposure control, adju stment of the mA and/or kV according to patient size and/or use of iterative reconstruction technique . FINDINGS: CTA head: In the anterior circulation, the intracranial internal carotid arteries have normal course and calibe r. The internal carotid arteries bifurcate into widely patent A1 and M1 segments of the anterior and middle cerebral arteries respectively. No evidence of flow-limiting stenosis, aneurysm, occlusion, or dissection in the anterior circulation. The anterior communicating artery is patent. In the posterior circulation, the dominant right cervical vertebral artery supplies the intracranial right vertebral artery with likely retrograde filling of the intracranial left vertebral artery. The basilar artery is patent and terminates in the superior cerebellar arteries. The posterior cerebral a rteries are origin arising from the internal carotid arteries and are widely patent. No evidenc e of stenosis, aneurysm, occlusion, or dissection in the posterior circulation. No definite acute intracranial abnormality identified. No acute abnormality of the osseous calvarium. Paranasal sinuses and mastoid air cells are well aerated. CTA NECK: The aortic arch has normal anatomic configuration. The origin of the great vessels are widely patent. The right common carotid artery is widely patent and bifurcates into widely patent internal and exter nal carotid arteries. Nonflow-limiting atherosclerotic plaque at the carotid bulb. 0% stenosis by AMANDEEP CET criteria. No evidence of occlusion or dissection. The left common carotid artery is widely patent and bifurcates into widely patent internal and premix operator concentrate al carotid arteries. No flow-limiting atherosclerotic plaque at the carotid bulb. 0% stenosis by NASC ET criteria. No evidence of occlusion or dissection. Dominant right cervical vertebral artery which is widely patent throughout its course. The visualized portions of the left vertebral artery remains diminutive in caliber. This is stable in appearance. N o evidence of occlusion, stenosis, or dissection. No definite acute abnormalities in the neck soft tissues. No apical pneumothorax. No acute osseous ab normalities. IMPRESSION: 1. No evidence of stenosis, occlusion, or aneurysm in the intracranial arterial circulat ion. 2. No evidence of stenosis/occlusion involving the cervical carotid arteries. 3. Dominant right cervical vertebral artery. This is stable in appearance. Electronically signed by: Rocco Bennett 02/05/2021 12:27 AM CDT Due to temporary technical issues with the PACS/Fluency reporting system, reports are being signed by the in house radiologists without review as a courtesy to insure prompt reporting. The interpreting radiologist is fully responsible for the content of the report.
--- NOTE | 2021-02-05 13:19 | RAD REPORT ---
EXAM DESCRIPTION: CT - Neck Angio - 02/05/2021 6:40 am CLINICAL HISTORY: 60 years, Male, HEADACHE COMPARISON: 08/04/2000 TECHNIQUE: Axial CTA images of the head and neck obtained following the uncomplicated intravenous ad ministration of iodinated contrast. 3-D/MIP reformatted images available. This exam was performed acc ording to our departmental dose-optimization program, which includes automated exposure control, adju stment of the mA and/or kV according to patient size and/or use of iterative reconstruction technique . FINDINGS: CTA head: In the anterior circulation, the intracranial internal carotid arteries have normal course and calibe r. The internal carotid arteries bifurcate into widely patent A1 and M1 segments of the anterior and middle cerebral arteries respectively. No evidence of flow-limiting stenosis, aneurysm, occlusion, or dissection in the anterior circulation. The anterior communicating artery is patent. In the posterior circulation, the dominant right cervical vertebral artery supplies the intracranial right vertebral artery with likely retrograde filling of the intracranial left vertebral artery. The basilar artery is patent and terminates in the superior cerebellar arteries. The posterior cerebral a rteries are origin arising from the internal carotid arteries and are widely patent. No evidenc e of stenosis, aneurysm, occlusion, or dissection in the posterior circulation. No definite acute intracranial abnormality identified. No acute abnormality of the osseous calvarium. Paranasal sinuses and mastoid air cells are well aerated. CTA NECK: The aortic arch has normal anatomic configuration. The origin of the great vessels are widely patent. The right common carotid artery is widely patent and bifurcates into widely patent internal and exter nal carotid arteries. Nonflow-limiting atherosclerotic plaque at the carotid bulb. 0% stenosis by AMANDEEP CET criteria. No evidence of occlusion or dissection. The left common carotid artery is widely patent and bifurcates into widely patent internal and dean of graduate studies al carotid arteries. No flow-limiting atherosclerotic plaque at the carotid bulb. 0% stenosis by NASC ET criteria. No evidence of occlusion or dissection. Dominant right cervical vertebral artery which is widely patent throughout its course. The visualized portions of the left vertebral artery remains diminutive in caliber. This is stable in appearance. N o evidence of occlusion, stenosis, or dissection. No definite acute abnormalities in the neck soft tissues. No apical pneumothorax. No acute osseous ab normalities. IMPRESSION: 1. No evidence of stenosis, occlusion, or aneurysm in the intracranial arterial circulat ion. 2. No evidence of stenosis/occlusion involving the cervical carotid arteries. 3. Dominant right cervical vertebral artery. This is stable in appearance. Electronically signed by: Rocco Bennett 02/05/2021 12:27 AM CDT Due to temporary technical issues with the PACS/Fluency reporting system, reports are being signed by the in house radiologists without review as a courtesy to insure prompt reporting. The interpreting radiologist is fully responsible for the content of the report.
== END 2021-02-05 00:58 | disposition home or self-care (01) ==
LOC: ER 19:31
DX: I10 Essential (primary) hypertension (principal); M54.12 Radiculopathy, cervical region; K21.9 Gastro-esophageal reflux disease without esophagitis; E78.00 Pure hypercholesterolemia, unspecified
CPT/HCPCS: 93005; 85025; 80048; 36415; 85610; 85730; 84484; 70450; 70496; 70498; Q9967; 99283